=== PATIENT | male | born 1980 | race Two or more races ===

== ENCOUNTER 2018-05-15 14:38 | Emergency (ER) | payer SELFPAY ==
[~2018-05-15] VITALS: Ht 160 cm; Wt 129.7 kg
[2018-05-15 14:41] VITALS: BP 148/110
[2018-05-15] MEDS ORDERED: LIDOCAINE-MPF 2%, 2ML ONE ×2 (15:15→15:16)
[2018-05-15] MEDS ORDERED: LIDOCAINE 2%, 10ML INFIL ONE (15:30)
== END 2018-05-15 17:08 | disposition home or self-care (01) ==
LOC: ED 17:02
DX: N49.2 Inflammatory disorders of scrotum (principal)
CPT/HCPCS: 76870; 99284

== ENCOUNTER 2018-05-18 12:30 | Emergency (ER) | payer SELFPAY ==
[~2018-05-18] VITALS: Ht 172.7 cm; Wt 131.0 kg
[2018-05-18 12:45] VITALS: BP 144/88
== END 2018-05-18 13:16 | disposition home or self-care (01) ==
LOC: ED 13:10
DX: L02.214 Cutaneous abscess of groin (principal)
CPT/HCPCS: 99282